=== PATIENT | male | born 1975 | race Caucasian/White ===

== ENCOUNTER 2017-08-28 06:48 | Emergency (ER) | payer MEDICAID, SELFPAY ==
[2017-08-28 06:50] VITALS: BP 160/100; PULSE 114; RESP 18; TEMP 36.7; O2SAT 100; BMI 27.3
--- NOTE | 2017-08-28 07:08 | RAD_ITS ---
STUDY: X-RAY - RIGHT FOOT CLINICAL: Male, 42 years old. Pain in the metatarsal and toes. No known injury. TECHNIQUE: 3 view(s) of the foot. COMPARISON: None. FINDINGS: Normal talus, calcaneus, and tarsal bones. Normal visualized subtalar, talonavicular, calcaneocuboid, tarsal and tarsometatarsal articulations. Normal metatarsi. Normal metatarsophalangeal joint of the great toe. Normal tibial and fibular sesamoid bones. Normal interphalangeal joint of the great toe. Normal phalanges of the great toe. Normal second through fifth metatarsophalangeal joints. Normal interphalangeal joints and phalanges of the lesser toes. The soft tissue structures are unremarkable. RAD/Foot min 3 Views IMPRESSION: Normal x-ray examination of the foot. Electronically Signed: Gurdeep Atkins MD at 7:52 EST , Service support ,
--- NOTE | 2017-08-28 07:09 | ED.VISSUMM ---
- ER Visit Summary Date of Service: 08/28/17 Chief Complaint: Right foot pain History of Present Illness: The patient is a 42 M who has had 5 days of right foot pain. He states that he first noticed it when he had a shoe on and it felt tight. He loosened it and it felt better. Denies any trauma. He took no medications for this at home. He denies any previous surgeries. He is a diabetic. He has no history of DVT or PE. There is no calf pain. Physical Examination: Vital signs are reviewed. Right foot exam reveals tenderness palpation over the dorsal part of the foot. There is mild erythema. There is some mild swelling over that area. He has less than 2 second capillary refill. With good pulses. His foot is warm. Test Results: X-rays of the foot are negative Emergency Department Course and Treatment: Patient will be treated with antibiotics due to the swelling and the fact that he is diabetic. I will give him naproxen. He will follow-up with his PCP Treatment Plan: [] Disposition: Discharge Impression: Right foot swelling This note was generated with [employer] dictation software. It may contain incorrect words, spelling, and punctuation that were not noted in review of the chart prior to signing ED Disposition - Plan for ED Patient: Chief Complaint: Lower Extremity Injury Referrals: NOT,DEFINED [NON-STAFF] -
--- NOTE | 2017-08-28 07:44 | ED.DEP ---
ED Disposition - Plan for ED Patient: Disposition: Home or Assisted Living Chief Complaint: Lower Extremity Injury Instructions: ED Sprain Foot Prescriptions: Cephalexin [Keflex] 500 mg PO Q6 #28 cap Naproxen [Naprosyn] 500 mg PO BID PRN #20 tab Referrals: NOT,DEFINED [NON-STAFF] -
== END 2017-08-28 08:09 | disposition home or self-care (01) ==
PROVIDERS: Emergency Provider Emergency Medicine
DX: M79.89 Other specified soft tissue disorders (principal); E10.9 Type 1 diabetes mellitus without complications; Z72.0 Tobacco use; Z79.899 Other long term (current) drug therapy
CPT/HCPCS: 73630; 99282